=== PATIENT | male | born 1990 | race Caucasian/White ===

== ENCOUNTER 2024-08-12 18:27 | Emergency (ER) | payer SELFPAY ==
[2024-08-12 18:32] VITALS: BP 143/98
--- NOTE | 2024-08-12 19:47 | ED.MUSCINJ ---
HPI-Injury
General
Chief Complaint: Fall
Time Seen by Provider: 08/12/24 19:26
History of Present Illness-Injury
Initial Injury comments:
Patient is a 33-year-old man presenting to the emergency department after he fell landing on his left shoulder. Patient states that he slipped while working and the fall was mostly on his shoulder. He did not hit his head or lose consciousness.
He is not on any blood thinners. He noticed an obvious deformity. His coworker brought him to the emergency department. While he was being transported patient states that he was holding onto his backpack and eventually his shoulder popped back
in. He is left-hand dominant. He has never dislocated his shoulder before. He does have intermittent tingling though that has improved since he has been here. He does have full range of motion however since it was reduced.
Phy Exam
Physical Exam
Physical Exam:
GENERAL: in no acute distress
NECK: normal inspection
RESPIRATORY: no respiratory distress
CARDIOVASCULAR: regular rate and rhythm
EXTREMITIES: Left upper extremity with full range of motion, no sensory deficits, normal cap refill, 2+ radial pulse
NEUROLOGIC: awake and alert, moves all extremities
SKIN: warm
Injury Course
Orders/Labs/Results
Orders:
Orders
08/12/24 18:34
Shoulder, Left, Trauma CR [CR Shoulder, Trauma - Left] Urgent
Comment:
Reason For Exam: left shoulder injury after fall
08/12/24 19:39
Sling Left-Treatment ONCE
MDM/Problems Addressed
Differential Diagnosis Includes:
Patient is a 33-year-old man presenting to the emergency department with concern for shoulder dislocation that reduced prior to arrival. Vital signs are unremarkable. During my exam patient does have full range of motion with no obvious deformity.
Likely shoulder dislocation that spontaneously reduced. X-ray per my interpretation with no obvious dislocation though in 1 view it does appear dislocated. However clinically patient does have full range of motion with no pain. Patient given
sling. Patient advised limited range of motion but to move it daily to prevent frozen shoulder. Strict return precautions given. Will discharge at this time.
*Pulse Oximetry
SaO2: 98
Oxygen Mode of Delivery: Room air
Patient hypoxic: no (98)
*Critical Care Note
Total Time (30-74mins, 75-104mins- exclusive of procedures): Not Applicable
ED Attending Note
-
Portions of this chart may have been created with voice recognition software.� Occasional wrong word or��sound alike� substitutions may have occurred due to the inherent limitations of voice recognition software.
Discharge Plan
Departure
Patient Disposition: Home (Routine Discharge)
Date of Disposition: 08/12/24
Time of Disposition: 19:46
Patient with high blood pressure during this ER visit?: No
Discharge Problem:
Dislocation of shoulder
Instructions: Shoulder Dislocation (DC), How to Use a Shoulder Sling ED
Referrals:
Adi Jacobson MD [Active, Orthopedics] - As needed
Stand Alone Forms: Return to Work
Interventions
Interventions:
ED-Musculoskeletal Assessment Last Done: 08/12/24 19:37
ED- Neurological Assessment Last Done: 08/12/24 19:37
ED-Skin Assessment Last Done: 08/12/24 19:37
Discharge Date and Time
Print Language: FINNISH
== END 2024-08-12 20:08 | disposition home or self-care (01) ==
LOC: EMR 18:27
PROVIDERS: EMERGENCY PHYSICIAN Student in an Organized Health Care Education/Training Program
DX: S43.005A Unspecified dislocation of left shoulder joint, initial encounter (principal); W01.0XXA Fall on same level from slipping, tripping and stumbling without subsequent striking against object, initial encounter; Y99.0 Civilian activity done for income or pay
CPT/HCPCS: 99283; 73030